=== PATIENT | female | born 1930 | race Caucasian/White ===

== ENCOUNTER 2016-10-01 23:25 | Emergency (ER) | payer MEDICARE, OTHER ==
[~2016-10-01] VITALS: Ht 165.1 cm; Wt 49.0 kg
--- OUTSIDE RECORDS SUMMARY | 2016-10-01 23:29 | XMS REPORT | Summary of Care ---
Author Author Estrada Albarran M.D. 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 Unavailable Unavailable Estrada Albarran Unavailable Unavailable Unavailable Unavailable Functional Status Name Dates Details Functional status health issues are not documented Status: Name Dates Details Cognitive status health issues are not documented Status: Problems Name Dates Details Frequent UTI (599.0, N39.0) Status: Active Osteoporosis (733.00, M81.0) Status: Active Crohn's disease (555.9, K50.90) Status: Active Hypercholesterolemia (272.0, E78.00) Status: Active Anticoagulant long-term use (V58.61, Z79.01) Status: Active Atrial fibrillation (427.31, I48.91) Status: Active Hypertension (401.9, I10) Status: Active Medicare annual wellness visit, subsequent (V70.0, Z00.00) Status: Active Medications Name Dates Details Estrace 0.1 MG/GM Vaginal Cream USE TWICE WEEKLY DIRECTED. Refills: 0 Estrada Albarran M.D. Start 11-Nov-2015 Active Aspir-81 81 MG Oral Tablet Delayed Release TAKE 1 TABLET DAILY DIRECTED. Refills: 0 Start 11-Nov-2015 Active Digoxin 125 MCG Oral Tablet TAKE 1 TABLET DAILY. Refills: 0 Estrada Albarran M.D. Start 11-Nov-2015 Active Cartia XT 120 MG Oral Capsule Extended Release 24 Hour TAKE 1 CAPSULE DAILY. Refills: 0 Estrada Albarran M.D. Start 11-Nov-2015 Active Welchol 625 MG Oral Tablet take 1 tab bid Refills: 0 Start 11-Nov-2015 Active Lialda 1.2 GM Oral Tablet Delayed Release TAKE 2 TABLETS ONCE DAILY WITH THE EVENING MEAL. Refills: 0 Start 11-Nov-2015 Active Coumadin 2 MG Oral Tablet Taking 1 pill on 4 days and half a pill on MWF Refills: 0 Start 11-Nov-2015 Active Alendronate Sodium 70 MG Oral Tablet TAKE 1 TABLET ONCE WEEKLY. Quantity: 4 Refills: 12 [place] M.D., Estrada Start 21-May-2016 Active Allergies and Adverse Reactions Name Dates Details No Known Drug Allergies (Allergy) Status: Active Past Medical History Name Dates Details History of Diverticulitis of colon with bleeding (562.13, K57.33) Status: Resolved History of Endometrial cancer (182.0, C54.1) Status: Resolved History of irritable bowel syndrome (V12.79, Z87.19) Status: Resolved Procedures Procedure Dates Details History of Complete Colonoscopy History of Appendectomy History of Hysterectomy History of Small Bowel Resection History of Pacemaker Placement CBC w/ Auto Diff 7150 Ordered: 21-May-2016 Comprehensive Metabolic Panel 1212 Ordered: 21-May-2016 DIGOXIN 3002 Ordered: 21-May-2016 Immunization Name Dates Details Immunizations not documented Family History Name Dates Details Family history of cerebrovascular accident (CVA) (V17.1, Z82.3) Status: Active Name Dates Details Family history of chronic obstructive pulmonary disease (V17.6, Z82.5) Status: Active Name Dates Details Family history of malignant neoplasm of thyroid (V16.8, Z80.8) Status: Active Social History Name Dates Details Unknown if ever smoked Vital Signs Date Test Result Details 21-May-2016 09:03 BP Systolic 118 mm[Hg] Status: Comments: Location: RUE; Position: Sitting BP Diastolic 56 mm[Hg] Status: Comments: Location: RUE; Position: Sitting Temperature 97.5 f Status: Comments: Method: Tympanic Heart Rate 73 /min Status: Comments: Location: ; Weight 105 lb Status: Physical Findings 98 Status: Comments: O2 Saturation Results Date Description Value Details 19-May-2016 14:47 Comprehensive Metabolic Panel 1212 Comments: Fastin.5 hours SODIUM 142 mmol/L Range: 133-144 POTASSIUM 3.8 mmol/L Range: 3.5-5.1 CHLORIDE 103 mmol/L Range: 98-110 CARBON DIOXIDE 29.6 mmol/L Range: 23.0-33.0 ANION GAP 9 mmol/L Range: 6-16 BUN 14 mg/dL Range: 7-18 CREATININE, SERUM 0.78 mg/dL Range: 0.55-1.02 BUN:CREATININE RATIO 18 EST GFR, >60 ml/min Range: >60 EST GFR, NON-AFR PARAGUAYAN >60 ml/min Range: >60 Comments: EST GFR is reported in ml/min per 1.73 m2 of body surface area. ----- GLUCOSE 87 mg/dL Range: 70-100 ALK PHOSPHATASE 72 U/L Range: 46-116 TOTAL BILIRUBIN 0.50 mg/dL Range: 0.20-1.00 AST 28 U/L Range: 8-35 ALT 30 U/L Range: 14-59 ALBUMIN 3.9 g/dL Range: 3.4-5.0 TOTAL PROTEIN 7.4 g/dL Range: 6.4-8.2 A/G RATIO 1.1 units Range: 1.0-1.8 CALCIUM 9.1 mg/dL Range: 8.5-10.1 14:47 LIPID PROFILE 1184 Comments: Fastin.5 hours CHOLESTEROL 171 mg/dL Range: <200 TRIGLYCERIDES 97 mg/dL Range: 30-200 HDL Cholesterol 97 mg/dL Range: >39 NON HDL CHOLESTEROL 74 CARDIAC RSK FACTOR 1.8 units (Below low threshold) Range: 4.4-5.0 LDL - CALCULATED 55 mg/dL Range: 0-130 14:57 CBC w/ Auto Diff 7150 Comments: Fastin.5 hours WBC 5.0 K/uL Range: 4.5-11.0 RBC 4.10 mil/uL Range: 3.60-5.00 HGB 12.8 g/dL Range: 12.0-16.0 HCT 38.4 % Range: 36.0-48.0 MCV 93.7 fL Range: 80.0-99.0 MCH 31.3 pg Range: 27.3-32.5 MCHC 33.4 % Range: 32.0-36.0 RDW 14.5 % Range: 11.6-14.8 PLATELETS 184 K/uL Range: 150-400 MPV 8.5 fL Range: 6.0-11.0 %NEUTRO 73.8 % Range: 37.0-80.0 %LYMPHS 16.1 % Range: 13.0-50.0 %MONO 3.3 % Range: 0.0-12.0 %EOS 5.3 % Range: 0.0-7.0 %BASO 0.4 % Range: 0.0-2.5 %SELMA 1.2 % Range: 0.0-5.0 NEUTRO 3.7 K/uL Range: 2.0-6.9 LYMPHS 0.8 K/uL Range: 0.6-3.4 MONOS 0.2 K/uL Range: 0.0-0.9 EOS 0.3 K/uL Range: 0.0-0.7 BASO 0.0 K/uL Range: 0.0-0.2 08-Jun-2016 14:47 PROTIME PANEL 7000 PROTIME 33.4 secs (Above high threshold) Range: 12.0-14.9 INR 3.25 Plan of Care Name Dates Details Planned Observations Planned Goals not documented Planned Encounters Appointment; Provider: Estrada Albarran M.D. On 09:00 Instructions Name Dates Details Instructions not documented Encounters Appointment; Estrada Albarran M.D. Encounter Diagnosis: Problem not documented On 21-May-2016 09:00 Appointment; Estrada Albarran M.D. Encounter Diagnosis: Problem not documented On 15-Jan-2016 10:00 Appointment; Estrada Albarran M.D. Encounter Diagnosis: Problem not documented On 11-Nov-2015 10:00
[2016-10-02] MEDS ORDERED: SODIUM CHLORIDE FLUSH 10 ML SYR IV PRN (00:10)
[2016-10-02] MEDS ORDERED: SODIUM CHLORIDE FLUSH 3 ML SYR IV PRN (00:10)
[2016-10-02] MEDS ORDERED: WARF1TAB PO (00:15)
[2016-10-02] MEDS ORDERED: DILT120C53 PO (00:15)
[2016-10-02] MEDS ORDERED: DIGO125T PO (00:15)
[2016-10-02] MEDS ORDERED: ASPI-586 PO (00:15)
[2016-10-02] MEDS ORDERED: WARF2TAB PO (00:15)
[2016-10-02] MEDS ORDERED: MULT1TAB69 PO (00:15)
[2016-10-02] MEDS ORDERED: CALC-656 PO (00:15)
[2016-10-02] MEDS ORDERED: MESA1.2T PO (00:15)
[2016-10-02 00:53] LABS: BASOPHILS % (AUTO) 1 % (0-2); EOSINOPHILS # (AUTO) 0.1 10^3uL; EOSINOPHILS % (AUTO) 3 % (0-4); LYMPHOCYTES # (AUTO) 1.2 X10^3; MEAN CORPUSCULAR HEMOGLOBIN 30.2 PG (26.0-34.0); MEAN CORPUSCULAR HGB CONC 33.2 g/dL (31.0-37.0); MEAN CORPUSCULAR VOLUME 91 FL (80-100); MEAN PLATELET VOLUME 11.1 FL (6.0-9.5); MONOCYTES # (AUTO) 0.6 X10^3; MONOCYTES % (AUTO) 10 % (3-11); NEUTROPHILS # (AUTO) 3.6 X10^3; NEUTROPHILS % (AUTO) 65 % (51-67); PLATELET COUNT 197 10^3uL (150-450); WHITE BLOOD COUNT 5.56 10^3uL (4.0-11.0)
[2016-10-02 01:01] LABS: ALBUMIN 4.7 g/dL (3.4-5.0); ANION GAP 17.6 MEQ/L (3-15); TOTAL PROTEIN 8.3 g/dL (6.4-8.5)
[2016-10-02 03:41] VITALS: BP 127/79
== END 2016-10-02 01:55 | disposition short-term general hospital (02) ==
LOC: ED 23:26
DX: K92.2 Gastrointestinal hemorrhage, unspecified (principal); Z79.01 Long term (current) use of anticoagulants
CPT/HCPCS: 36415; 80053; 85025; 85610; 96360; 99284; J7030; 99283

== ENCOUNTER → 2016-10-02 | Outpatient (CLI) | payer MEDICARE, OTHER ==
[~2016-10-02] MED LIST: ASPI-586 PO; CALC-656 PO; DIGO125T PO; DILT120C53 PO; MESA1.2T PO; MULT1TAB69 PO; WARF1TAB PO; WARF2TAB PO
== END ==
LOC: EMS 02:03
PROVIDERS: ATTEND Emergency Medicine
DX: K92.2 Gastrointestinal hemorrhage, unspecified (principal)